=== PATIENT | female | born 1980 | race African-American/Black ===

== ENCOUNTER 2018-04-20 11:41 | Emergency (ER) | payer OTHER ==
[~2018-04-20] VITALS: Ht 175.3 cm; Wt 100.0 kg
[~2018-04-20 11:41] MED LIST changes: -FOLIC ACID1 MG PO; -LEVOTHYROXIN25 MC1 PO; -MULTIVITAMI1 PO
[2018-04-20] MEDS ORDERED: LEVOTHYROXIN25 MC1 PO (12:06)
[2018-04-20] MEDS ORDERED: FOLIC ACID1 MG PO (12:08)
[2018-04-20] MEDS ORDERED: MULTIVITAMI1 PO (12:08)
[2018-04-20] MEDS ORDERED: TYLENOL # 31 TA1 PO (12:09)
[2018-04-20 12:34] VITALS: BP 126/89
== END 2018-04-20 12:34 | disposition home or self-care (01) | DRG 563 ==
LOC: ED 11:41
DX: S46.912A Strain of unspecified muscle, fascia and tendon at shoulder and upper arm level, left arm, initial encounter (principal); M25.512 Pain in left shoulder; X50.3XXA Overexertion from repetitive movements, initial encounter; Y93.F2 Activity, caregiving, lifting; Y92.230 Patient room in hospital as the place of occurrence of the external cause; Y99.0 Civilian activity done for income or pay

== ENCOUNTER → 2018-04-20 | Outpatient (REF) ==
[~2018-04-20] MED LIST: AMOXICILLIN500 MG PO; ATIVAN1 M1 PO; AUGMENTIN875TAB PO; BACTRIM DS1 TAB PO; BENADRYL25 M1 OR; CIPRO500 MG PO; CIPROFLOXACN500 MG PO; DIFLUCAN150 MG PO; DOXYCYCL HYC100 M3 PO; FLAGYL500 MG OR; FOLIC ACID1 MG PO; LEVOTHYROXIN25 MC1 PO; MEDROL32 MG OR; MULTIVITAMI1 PO; NAPROSYN500 MG PO; NO HOME MEDS; OMNICEF300 M1 PO; PREDNISONE10 MG PO; PROTONIX40 M2 PO; PROZAC10 MG PO; PROZAC40 MG PO; PYRIDIUM200 MG PO; ROCEPHIN 2250 MG/VIA IM; SPRINTEC 2828 DAY PO; TOPAMAX25 MG PO; TYLENOL # 31 TA1 PO; ZITHROMAX250 MG PO
[2018-04-20 09:15] LABS: CHOLESTEROL HDL RATIO 4.1 (<4.4 (CALC))
== END | disposition home or self-care (01) | DRG 951 ==
LOC: LAB 08:24
PROVIDERS: ATTEND Family Medicine
DX: Z02.6 Encounter for examination for insurance purposes (principal)